=== PATIENT | female | born 1985 | race Hispanic/Latino ===

== ENCOUNTER 2025-01-10 16:14 | Emergency (ER) | payer SELFPAY ==
[2025-01-10 17:41] LABS: Glucose, Urine (Dipstick) Negative (Negative); Leukocyte Negative (Negative); Protein, Urine (Dipstick) Negative (Neg-Trace); Specific Gravity, Urine 1.025 (1.005-1.030)
[2025-01-10 17:43] LABS: Bacteria/HPF 1+ HPF (None Seen); CAUTI Indications for Culture Dysuria,urgency,freq; Pregnancy Test - Urine (BHCG) Negative (Negative); Pregu Control Background? CLEAR/WHITE (CLR/WHITE); Pregu Control Bar Appear? YES (CONTROL BAR); WBC/HPF 0-3 HPF (0-3)
[2025-01-10 17:44] LABS: Urine Culture Reflex No No
== END 2025-01-10 18:00 | disposition home or self-care (01) ==
LOC: BURERS 16:14
DX: R11.2 Nausea with vomiting, unspecified (principal); J06.9 Acute upper respiratory infection, unspecified; F17.210 Nicotine dependence, cigarettes, uncomplicated; Z59.71 Insufficient health insurance coverage
CPT/HCPCS: 81001; 81025; 87428; 99284; Q0162

== ENCOUNTER 2025-02-21 16:24 | Emergency (ER) | payer SELFPAY ==
[2025-02-21] MEDS ORDERED: Ketorolac Tromethamine 30 MG (1 mL) VIAL ONE (16:38)
== END 2025-02-21 17:01 | disposition home or self-care (01) ==
LOC: BURERS 16:24
DX: S16.1XXA Strain of muscle, fascia and tendon at neck level, initial encounter (principal); S29.012A Strain of muscle and tendon of back wall of thorax, initial encounter; M62.838 Other muscle spasm; F17.210 Nicotine dependence, cigarettes, uncomplicated; X50.0XXA Overexertion from strenuous movement or load, initial encounter; G62.9 Polyneuropathy, unspecified
CPT/HCPCS: 96372; 99283; J1885